=== PATIENT | female | born 1965 | race African-American/Black ===

== ENCOUNTER 2017-03-07 09:37 | Outpatient (CLI) | payer BC | END 2017-03-07 09:38 | disposition home or self-care (01) | LOC: BICMAMMO 09:37 | PROVIDERS: ATTEND Family Medicine | DX: Z12.31 Encounter for screening mammogram for malignant neoplasm of breast (principal) | CPT/HCPCS: 77067; G0202 ==

== ENCOUNTER 2018-03-10 11:40 | Outpatient (CLI) | payer BC | END 2018-03-10 11:41 | disposition home or self-care (01) | LOC: BICMAMMO 11:40 | PROVIDERS: ATTEND Family Medicine | DX: Z12.31 Encounter for screening mammogram for malignant neoplasm of breast (principal); Z80.3 Family history of malignant neoplasm of breast | CPT/HCPCS: 77063; 77067 ==

== ENCOUNTER 2018-10-23 07:50 | Day surgery (SDC) | payer BC ==
[2018-10-22 09:48] VITALS: BMI 33.7
[2018-10-23] MEDS ORDERED: ceFAZolin Sodium (SDC) 2 GM/100 ML BAG ONE (09:00)
[2018-10-23 09:13] LABS: Hemoglobin 12.5 g/dL (12.0-16.0); Mean Corpuscular HGB CONC 32.3 g/dL (32.0-36.0); Mean Corpuscular Hemoglobin 28.3 pg (27.0-31.0); Mean Corpuscular Volume 87.8 fL (78.0-98.0); Mean Platelet Volume 7.3 fL (7.4-10.4); Platelet Count 245 thou/uL (130-400); White Blood Cell (WBC) Count 4.7 thou/uL (4.8-10.8)
--- NOTE | 2018-10-23 09:35 | RAD ---
RADIOGRAPH CHEST 2 VIEWS: 10/23/2018 HISTORY: 53-year-old female for preoperative clearance. FINDINGS: There is no air space density, pulmonary edema, pleural effusion, pneumothorax, or cardiomegaly. There is a 5 mm left upper lobe pulmonary nodule, which was not present on the previous chest radiogr aph of 10/19/14. IMPRESSION: 1. No acute cardiopulmonary findings. 2. Small left upper lobe pulmonary nodule. Recommend noncontrast chest CT. tera mehta POS: CET
[2018-10-23 09:44] LABS: Band 4 % (5-11); Eosinophils 7 % (0-10); Lymphocytes 47 % (21-51); MDiff Complete? YES; Monocytes 10 % (0-10); Neutrophil 27 % (42-75); RBC Morphology Normal; Reactive Lymphocytes 5 % (0-10)
[2018-10-23] MEDS ORDERED: Midazolam HCl 2 mg/2 ml Vial ONE (09:50)
[2018-10-23] MEDS ORDERED: Fentanyl 100 MCG/2 ML VIAL ONE (09:50)
[2018-10-23] MEDS ORDERED: Lidocaine 1% w/Epinephrine 1:200K 30 ML VIAL ONE (09:58)
[2018-10-23] MEDS ORDERED: Ondansetron PF 4 MG/2 ML Vial ONE (11:27)
[2018-10-23] MEDS ORDERED: Lidocaine 1% PF 5 ML VIAL ONE (11:27)
[2018-10-23] MEDS ORDERED: Dexamethasone 20 MG/5 ML VIAL ONE (11:27)
[2018-10-23] MEDS ORDERED: PROPOFOL 200 MG/20 ML VIAL ONE (11:27)
--- NOTE | 2018-10-24 14:03 | OP ---
DATE OF PROCEDURE: 10/23/2018 PREOPERATIVE DIAGNOSIS: Right carpal tunnel syndrome. POSTOPERATIVE DIAGNOSIS: Right carpal tunnel syndrome. PROCEDURE PERFORMED: Right open carpal tunnel release. INDUSTRIAL CONTROLLER: None. ANESTHESIA: The patient received LMA and 10 mL of 1% lidocaine with epinephrine. ESTIMATED BLOOD LOSS: Less than 20 mL. TOURNIQUET TIME: 4 minutes of 250 mmHg. ANTIBIOTICS: Ancef 2 g. COMPLICATIONS: None. HISTORY OF PRESENT ILLNESS: Ms. Booker is a 53-year-old female who presented to me with numbness with over year of pain. 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 She has undergone conservative management with bracing. The patient has carpal tunnel of right wrist. I discussed with the patient risks and benefits of open right carpal tunnel release to include pain, scar, bleeding, infection, damage to vital structures, decreased range of motion and strength, and damage to nerves, neuropathic pain. The patient understood the risks and benefits and elected to proceed. DESCRIPTION OF PROCEDURE: Time-out was performed designating the patient's right upper extremity as the operative site based on site, consents, and marking. After time-out, the patient's right upper extremity was prepped and draped in a sterile fashion. Incision down through skin, came down through the superior skin fascia came down the patient's palmaris brevis. This was coming down splitting transverse carpal ligament exposed the nerve, ensured that it was released proximally, completely, washed, closed. Let the tourniquet down for 4 minutes to control bleeding, closed with 3-0 nylon. The patient will be discharged home with soft tissue dressing, may remove it in about 3-4 days, placed the dressing over the hard Velcro wrist splint. Job ID: [id number] [facility]
--- NOTE | 2018-10-27 08:43 | EKG ---
Test Reason : PREOP Blood Pressure : / mmHG Vent. Rate : 056 BPM Atrial Rate : 056 BPM P-R Int : 160 ms QRS Dur : 082 ms QT Int : 476 ms P-R-T Axes : 067 031 029 degrees QTc Int : 459 ms Sinus bradycardia Otherwise normal ECG When compared with ECG of 14-JUL-2010 10:28, No significant change was found Confirmed by DR. Araceli CHAN ([id number]) on 10/27/2018 8:43:16 AM Referred By: GEMA Confirmed By:DR. Araceli CHAN
== END 2018-10-23 12:55 | disposition home or self-care (01) ==
LOC: SDC 07:50
PROVIDERS: ATTEND Orthopaedic Surgery
PROC: 01N50ZZ Release Median Nerve, Open Approach (ICD-10-PCS; principal; 2018-10-23)
DX: G56.01 Carpal tunnel syndrome, right upper limb (principal); M65.4 Radial styloid tenosynovitis [de Quervain]; I10 Essential (primary) hypertension; E66.9 Obesity, unspecified; K21.9 Gastro-esophageal reflux disease without esophagitis; E78.5 Hyperlipidemia, unspecified; D64.9 Anemia, unspecified; Z68.33 Body mass index [BMI] 33.0-33.9, adult; Z91.018 Allergy to other foods; Z88.6 Allergy status to analgesic agent; Z91.030 Bee allergy status; Z88.5 Allergy status to narcotic agent; Z88.8 Allergy status to other drugs, medicaments and biological substances; Z79.899 Other long term (current) drug therapy
CPT/HCPCS: 36415; 71046; 85025; 93005; 93010; J0690; J2250; J3010

== ENCOUNTER 2018-11-20 10:05 | Outpatient (CLI) | payer BC ==
--- NOTE | 2018-11-20 15:39 | CT ---
NONCONTRAST CT THORAX: HISTORY: Left pulmonary nodule seen on recent chest x-ray. COMPARISON: Chest x-ray on 10/23/2018. FINDINGS: There is a small subcentimeter calcified granuloma seen in the left upper lobe which corresponds to t he chest x-ray abnormality. There is a tiny approximately 3 mm pulmonary nodule seen in the right upper lobe anteriorly. There i s also an oval-shaped pleural-based nodule seen in the junction of the minor and major fissures with an additional much smaller tiny pleural-based pulmonary nodule in the right upper lobe adjacent to th e minor fissure which may represent small pleural-based lymph nodes. A small less than 4 mm pleural- based nodular density is seen at the right lung base laterally. No additional discrete noncalcified pulmonary nodule is seen in the lungs bilaterally. There is no pleural effusion. Lack of intravenous contrast limits evaluation of the mediastinal structures, but no definite enlarge d lymph nodes are appreciated. Multilevel degenerative changes are seen in the spine with prominent osteophytes in the mid and lower lumbar spine which result in mild atelectasis in the posteromedial aspect right lower lobe. The visualized upper abdomen demonstrates a grossly normal nonenhanced CT appearance. IMPRESSION: 1. Small subcentimeter calcified granuloma in the left upper lobe which corresponds to the recent est x-ray abnormality. 2. Too small to characterize approximately 3-4 mm pulmonary nodule in the right upper lobe. 3. A few scattered pleural-based nodular densities are present which may represent small intrapleura l lymph nodes. POS: SARAH
== END 2018-11-20 10:06 | disposition home or self-care (01) ==
LOC: SCSCT 10:05
PROVIDERS: ATTEND Family Medicine
DX: R91.8 Other nonspecific abnormal finding of lung field (principal); J84.10 Pulmonary fibrosis, unspecified; J98.4 Other disorders of lung; R91.1 Solitary pulmonary nodule
CPT/HCPCS: 71250

== ENCOUNTER 2020-09-06 13:03 | Outpatient (CLI) | payer BC | END 2020-09-06 13:04 | disposition home or self-care (01) | LOC: SCSMRI 13:03 | PROVIDERS: ATTEND Orthopaedic Surgery Foot and Ankle Surgery | DX: M79.672 Pain in left foot (principal); M25.572 Pain in left ankle and joints of left foot; M19.072 Primary osteoarthritis, left ankle and foot ==